=== PATIENT | female | born 1955 | race Caucasian/White ===

== ENCOUNTER → 2017-05-11 | Outpatient (CLI) | payer OTHER ==
--- NOTE | 2017-05-12 03:18 | RAD ---
EXAM DESCRIPTION: KUB CLINICAL HISTORY: 61 years Female, CALCULUS OF KIDNEY COMPARISON: 12/03/2015 FINDINGS: Single view of the abdomen. Large amount stool. No dilated loops of large or small bowel identified. Degenerative change of the spine. No definite free intraperitoneal air. No definite renal calculi identified. IMPRESSION: 1. Large stool burden. Nonobstructive bowel gas pattern. 2. No definite renal calculus identified. Electronically signed by: Timothy Valente 05/12/2017 3:17 AM CDT
== END | disposition home or self-care (01) ==
LOC: RAD 13:49
PROVIDERS: ATTEND Urology
DX: N20.0 Calculus of kidney (principal)

== ENCOUNTER → 2018-02-23 | Outpatient (CLI) | payer OTHER | LOC: LAB.O 09:09 | PROVIDERS: ATTEND Orthopaedic Surgery | DX: M17.0 Bilateral primary osteoarthritis of knee (principal) ==

== ENCOUNTER → 2018-05-04 | Outpatient (CLI) | payer OTHER ==
--- NOTE | 2018-05-05 07:21 | RAD ---
EXAM: Knee,Right 2 or More Views CLINICAL HISTORY: RIGHT KNEE PAIN COMPARISON STUDY: January 30, 2015 TECHNICAL: Standing AP, lateral and sunrise images FINDINGS: There is significant joint space loss of the medial compartment. There is remodeling of the femoral and tibial sides of the joint. Subchondral sclerosis and periarticular osteophytes are present. There is a lateral subluxation of the tibia that measures 8 mm. The lateral compartment shows no significant degenerative process. There are minimal osteophytes at the patellofemoral joint. There is no fracture, dislocation or joint effusion. IMPRESSION: Severe degenerative joint changes of the medial compartment and 8 mm lateral subluxation of the tibia., Mild varus angulation. Electronically signed by: Eleazar Powers MD 05/05/2018 7:20 AM CDT
--- NOTE | 2018-05-05 07:21 | RAD ---
EXAM: Pelvis and hip CLINICAL HISTORY: Pain COMPARISON STUDY: None TECHNICAL: AP pelvis FINDINGS: The pelvic ring is intact and negative. Both hips are in anatomic alignment. There is no identifiable fracture. There is no osseous abnormality. There are no significant degenerative changes IMPRESSION: Negative pelvis. Electronically signed by: Eleazar Powers MD 05/05/2018 7:20 AM CDT
--- NOTE | 2018-05-05 07:23 | RAD ---
EXAM: Knee,Left 2 or More Views CLINICAL HISTORY: LEFT KNEE PAIN COMPARISON STUDY: February 16, 2016 TECHNICAL: Standing AP, lateral and sunrise images FINDINGS: There is significant joint space loss of the medial compartment. There is remodeling of the femoral and tibial sides of the joint. Subchondral sclerosis and periarticular osteophytes are present. There is a lateral subluxation of the tibia that measures 7 mm. The lateral compartment shows no significant degenerative process. There are minimal osteophytes at the patellofemoral joint. There is no fracture, dislocation or joint effusion. IMPRESSION: Severe degenerative joint changes of the medial compartment and 8 mm lateral subluxation of the tibia., Mild varus angulation. Electronically signed by: Eleazar Powers MD 05/05/2018 7:22 AM CDT
== END ==
LOC: RAD 10:04
PROVIDERS: ATTEND Orthopaedic Surgery
DX: S83.142A Lateral subluxation of proximal end of tibia, left knee, initial encounter (principal); S83.141A Lateral subluxation of proximal end of tibia, right knee, initial encounter; M25.551 Pain in right hip; M25.552 Pain in left hip

== ENCOUNTER → 2018-05-25 | Outpatient (CLI) | payer OTHER | LOC: RESP 09:33 | PROVIDERS: ATTEND Orthopaedic Surgery | DX: Z01.818 Encounter for other preprocedural examination (principal) ==

== ENCOUNTER 2018-06-20 05:38 | Inpatient (IN) | payer OTHER ==
--- NOTE | 2018-06-19 08:32 | HP ---
CHIEF COMPLAINT: Right knee pain. HISTORY OF PRESENT ILLNESS: Mariam is a 62-year-old female with a history of severe knee pain. The pain has been getting progressively worse and has been refractory to conservative measures. Because of her ongoing pain and the refractory nature of it, she has requested operative intervention. After discussing the risks, benefits and alternatives to total knee arthroplasty, the patient has given informed consent. PAST SURGICAL HISTORY: 1. Bilateral carpal tunnel release. 2. Bilateral rotator cuff repair. 3. . MEDICATIONS: 1. Tylenol with codeine. 2. Amoxicillin. 3. Azithromycin. 4. Benzonatate. 5. Fluorouracil. 6. Hydrochlorothiazide. 7. Meloxicam. 8. Monovisc. 9. Potassium. 10. ProAir. 11. Triamcinolone. ALLERGIES: NO KNOWN DRUG ALLERGIES. CODE STATUS: Full code. IMMUNIZATIONS: Up to date. FAMILY HISTORY: None pertinent to today's complaint. SOCIAL HISTORY: The patient does not drink, smoke or use any illicit drugs. REVIEW OF SYSTEMS: Negative except as indicated in the History of Present Illness. PHYSICAL EXAMINATION: VITAL SIGNS: Blood pressure 148/84. Pulse 86. Height 5'3". Weight 198 pounds. MENTAL STATUS: The patient is awake, alert, and is able to give a good history and participate in the physical. The patient is oriented to person, place and time. SKIN: Normal tone and turgor. HEENT: Normocephalic, atraumatic. Pupils equal, round and reactive. Mucosal membranes are moist. NECK: Normal range of motion. No thyromegaly, no lymphadenopathy. CHEST: Normal respiratory excursion. CARDIAC: Regular rate and rhythm. No murmurs, rubs or gallops. MUSCULOSKELETAL: The bilateral upper extremities show full active range of motion without pain. She has intact sensation in both extremities and they are warm and well perfused. 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 The left lower extremity shows no significant pain with range of motion of the hip. Range of motion of the knee causes pain as does palpation. She has no varus/ valgus or anterior/posterior laxity, however, she does have slight varus deformity. The right lower extremity shows no significant pain with range of motion of the hip. She has pain with crepitus with range of motion of the knee and varus deformity. She has no significant varus/valgus or anterior/posterior laxity. The extremity is warm and well perfused. Sensation is intact. Strength is 5/5. IMAGING: X-rays show varus deformity to the knee and no acute bony abnormality. ASSESSMENT: 1. Osteoarthritis. PLAN: The plan at this point is for total knee arthroplasty. We have discussed the risks, benefits, and alternatives to that and the patient has given informed consent. [id number] [facility]
[2018-06-20] MEDS ORDERED: LACTATED RINGERS 1,000 ML ONE ×3 (05:59→09:51)
[2018-06-20] MEDS ORDERED: TRANEXAMIC ACID 1,000 MG/10 ML VIAL ONE ×2 (05:59→06:00)
[2018-06-20] MEDS ORDERED: SODIUM CHL 0.9% 100ML MINI-BAG 100 ML IVPB ONE (05:59)
[2018-06-20] MEDS ORDERED: VANCOMYCIN HCL INJ 1,000 MG VIAL IVPB ONE ×2 (05:59→20:32)
[2018-06-20] MEDS ORDERED: SODIUM CHLORIDE 0.9% 250ML 250 ML ONE ×2 (06:00→20:31)
[2018-06-20] MEDS ORDERED: ceFAZolin SODIUM 1 GM VIAL ONE ×2 (06:00→06:19)
[2018-06-20] MEDS ORDERED: SODIUM CHLORIDE 0.9% 100ML 100 ML IVPB ONE (06:00)
[2018-06-20] MEDS ORDERED: MORPHINE SULFATE *EPIDURAL* 0.5 MG/ML VIAL ONE (06:37)
[2018-06-20] MEDS ORDERED: MIDAZOLAM INJ 2 MG/2 ML VIAL ONE (06:37)
[2018-06-20] MEDS ORDERED: fentaNYL CITRATE INJ 50 MCG/ML AMP ONE (06:38)
[2018-06-20] MEDS ORDERED: BUPIVACAINE 0.5% 30 ML VIAL INJ ONE (06:38)
[2018-06-20] MEDS ORDERED: BUPIVACAINE LIPOSOME 13.3 MG/ML VIAL INJ ONE (06:39)
[2018-06-20] MEDS ORDERED: SUGAMMADEX SODIUM 200 MG/2 ML VIAL IV ONE (06:40)
[2018-06-20] MEDS ORDERED: LIDOCAINE 1% 10 ML VIAL INJ ONE ×2 (07:00→10:00)
[2018-06-20] MEDS: VANCOMYCIN HCL INJ 1,000 MG VIAL IVPB ONE ×2 (07:53→08:54)
[2018-06-20] MEDS: ceFAZolin SODIUM 1 GM VIAL ONE ×2 (07:53→08:54)
[2018-06-20] MEDS: BUPIVACAINE LIPOSOME 13.3 MG/ML VIAL INJ ONE ×2 (07:54→09:00)
[2018-06-20] MEDS: BUPIVACAINE 0.5% 30 ML VIAL INJ ONE ×2 (07:54→09:00)
[2018-06-20] MEDS ORDERED: TRANEXAMIC ACID INJ 1,000 MG in SODIUM CHLORIDE 0.9% 100ML 100 ML IVPB ONE (09:14)
[2018-06-20] MEDS ORDERED: ACETAMINOPHEN 500 MG TAB PO PRN (09:14)
[2018-06-20] MEDS ORDERED: MORPHINE SULFATE INJ 10 MG/ML VIAL IM PRN (09:14)
[2018-06-20] MEDS ORDERED: PROMETHAZINE HCL INJ 25 MG in SODIUM CHLORIDE 0.9% 50ML 50 ML IVPB PRN (09:14)
[2018-06-20] MEDS ORDERED: traMADol HCL 50 MG TAB PO PRN (09:14)
[2018-06-20] MEDS ORDERED: ACETAMINOPHEN 325 MG TAB PO PRN (09:14)
[2018-06-20] MEDS ORDERED: HYDROcodone 5MG/APAP 325MG 1 EA TAB PO PRN (09:14)
[2018-06-20] MEDS ORDERED: NALOXONE HCL INJ 0.4 MG/ML VIAL IV PRN (09:14)
[2018-06-20] MEDS ORDERED: DEX 5% W/NACL 0.45% 1000ML 1,000 ML IVS PRN (09:14)
[2018-06-20] MEDS ORDERED: PROMETHAZINE HCL INJ 12.5 MG in SODIUM CHLORIDE 0.9% 50ML 50 ML IVPB PRN (09:14)
[2018-06-20] MEDS ORDERED: MORPHINE SULFATE INJ 10 MG/ML VIAL IV PRN (09:14)
[2018-06-20] MEDS ORDERED: BISACODYL SUPPOSITORY 10 MG PR PRN (09:14)
[2018-06-20] MEDS ORDERED: ALUMINUM & MAGNESIUM HYDROXIDE 30 ML UD PO PRN (09:14)
[2018-06-20] MEDS ORDERED: MAGNESIUM HYDROXIDE 30 ML UD PO PRN (09:14)
[2018-06-20] MEDS ORDERED: ZOLPIDEM TARTRATE 5 MG TAB PO PRN (09:14)
[2018-06-20] MEDS ORDERED: BENZOCAINE-MENTH LOZ (CEPACOL) 1 EA LOZ MT PRN (09:14)
[2018-06-20] MEDS ORDERED: SODIUM CHLORIDE 0.9% (FLUSH) 10 ML SYG IV PRN (09:14)
[2018-06-20] MEDS ORDERED: MORPHINE PCA 1 MG/ML 100 ML BAG IVPB SCH (09:30)
[2018-06-20] MEDS ORDERED: IV SET AND CAP CHANGE INJ INJ SCH (09:30)
[2018-06-20] MEDS ORDERED: HALOPERIDOL LACTATE INJ 5 MG/ML VIAL IM ONE (10:00)
[2018-06-20] MEDS ORDERED: ePHEDrine SULF 50 MG/ML IV ONE (10:00)
[2018-06-20] MEDS ORDERED: WATER FOR INJ 10 ML VIAL INJ ONE (10:00)
[2018-06-20] MEDS ORDERED: VECURONIUM BROMIDE 10 MG VIAL IV ONE (10:00)
[2018-06-20] MEDS ORDERED: PROPOFOL 200 MG/20 ML VIAL IV ONE (10:00)
[2018-06-20] MEDS ORDERED: LABETALOL INJ 5 MG/ML VIAL IV ONE (10:00)
[2018-06-20] MEDS ORDERED: DEXAMETHASONE INJ 10 MG/ML VIAL IV ONE (10:00)
[2018-06-20] MEDS ORDERED: ONDANSETRON INJ 4 MG/2 ML VIAL IV ONE (10:00)
--- NOTE | 2018-06-20 11:31 | RAD ---
EXAM DESCRIPTION: Knee,Right 2 or More Views CLINICAL HISTORY: 62 yearsFemale, TKA COMPARISON: 05/04/2018 IMPRESSION: There are operative changes of a right total knee arthroplasty. Components appear in excellent alignment, with no complicating features. There is postoperative gas in the soft tissues. Electronically signed by: Jamaal Lizama MD 06/20/2018 11:30 AM [facility]
[2018-06-20] MEDS ORDERED: diphenhydrAMINE HCL 50 MG/ML VIAL ONE (14:19)
[2018-06-20] MEDS: diphenhydrAMINE HCL 50 MG/ML VIAL IV PRN ×3 (14:36→23:57)
[2018-06-20] MEDS ORDERED: ceFAZolin SODIUM 2 GRAMS PREMI 50 ML IVPB ONE ×2 (15:54→20:31)
[2018-06-20] MEDS ORDERED: ceFAZolin SODIUM 1 GM in SODIUM CHL 0.9% 50ML MIN-BAG+ 50 ML IVPB SCH (16:00)
[2018-06-20] MEDS: ceFAZolin SODIUM 2 GRAMS PREMI 2 GM in PREMIX BAG 1 BAG IVPB SCH ×2 (16:13→23:56)
[2018-06-20] MEDS: CELECOXIB 100 MG CAP PO SCH (17:54)
[2018-06-20] MEDS: VANCOMYCIN HCL INJ 1,000 MG in SODIUM CHLORIDE 0.9% 250ML 250 ML IVPB SCH (17:54)
--- NOTE | 2018-06-20 19:48 | CONS ---
DATE OF CONSULTATION: 06/20/18 SUPERVISING PHYSICIAN: Mynor Mehta M.D. CHIEF COMPLAINT: Right knee pain. HISTORY OF PRESENT ILLNESS: This is a 62 year-old female patient who has a history of severe right knee pain. It has progressively worsened over the past few years. She has failed with conservative measures. Because of her ongoing pain she has requested Dr. Bin Smith, orthopedic surgeon, operative intervention. Today, she was admitted to the hospital for a right total knee arthroplasty. The patient had no issues intraoperatively and I am seeing the patient postoperatively on the Medical/Surgical floor in consultation. PAST MEDICAL HISTORY: 1. Kidney stones. 2. Skin cancer. PAST SURGICAL HISTORY: 1. Carpal tunnel repair. 2. section times 2. 3. Rotator cuff repair. 4. Removal of multiple skin cancers. CURRENT OUTPATIENT MEDICATIONS: 1. Mobic. 2. Hydrochlorothiazide. 3. Potassium citrate. ALLERGIES: NO KNOWN DRUG ALLERGIES. SOCIAL HISTORY: She is . She has 2 children. She denies any ETOH, tobacco or illicit drug use. REVIEW OF SYSTEMS: Negative except as per History of Present Illness. PHYSICAL EXAMINATION: VITAL SIGNS: She is afebrile with temperature of 98.1, pulse 87, blood pressure 105/66, respiratory rate 20, O2 sat 93% on room air. GENERAL: This is a 62 year-old female patient who is lying in her hospital bed. She is in no acute distress. HEENT: Normocephalic and atraumatic. Pupils are equal and reactive. Oropharynx is clear. NECK: Supple without mass. RESPIRATORY: Essentially clear to auscultation. CHEST: There is equal rise and fall of the chest with inspiration and expiration. HEART: Regular rate and rhythm. GASTROINTESTINAL: Abdomen is soft, nondistended, non-tender. Bowel sounds are positive. EXTREMITIES: She has her right leg in the CPM machine. She has an Iceman in place on her right knee. The dressing is dry and intact. Her bilateral pedal pulses are palpable at +2. NEUROLOGIC: She is awake, alert and oriented times three. LABORATORY: There are no labs or films to review at this time. IMPRESSION: 1. Osteoarthritis of the right knee status post right total knee arthroplasty performed by Dr. Bin Smith, orthopedic surgeon. Postoperative day #0. 2. History of kidney stones. 3. History of skin cancers. PLAN: We will continue present supportive care. Orthopedic issues will be per Dr. Bin Smith, orthopedic surgeon. She will begin her physical therapy for strengthening and conditioning tomorrow. I have restarted her home medications with the exception of her Mobic. She has also gotten Benadryl for some mild itching. We will continue to monitor closely and follow as needed. Dr. Mehta is the collaborating physician available for consultation. #[id number] [facility]
[2018-06-20] MEDS ORDERED: ENOXAPARIN SODIUM 30 MG/0.3 ML SYG SUBCU ONE (20:31)
[2018-06-20] MEDS: DOCUSATE CALCIUM 240 MG CAP PO SCH (20:49)
[2018-06-20] MEDS: ENOXAPARIN SODIUM 30 MG/0.3 ML SYG SUBCU SCH (23:14)
[2018-06-21] MEDS: TEMAZEPAM 15 MG CAP PO PRN ×2 (00:13→21:44)
[2018-06-21] MEDS: CYCLOBENZAPRINE HCL 10 MG TAB PO PRN ×2 (02:05→08:09)
[2018-06-21] MEDS: diphenhydrAMINE HCL 50 MG/ML VIAL IV PRN (04:08)
[2018-06-21] MEDS: VANCOMYCIN HCL INJ 1,000 MG in SODIUM CHLORIDE 0.9% 250ML 250 ML IVPB SCH (05:44)
[2018-06-21] MEDS: CELECOXIB 100 MG CAP PO SCH ×2 (08:09→17:37)
[2018-06-21] MEDS ORDERED: ceFAZolin SODIUM 2 GRAMS PREMI 50 ML IVPB ONE (08:49)
[2018-06-21] MEDS: ceFAZolin SODIUM 2 GRAMS PREMI 2 GM in PREMIX BAG 1 BAG IVPB SCH (09:00)
[2018-06-21] MEDS: POTASSIUM CHLORIDE 10 MEQ TAB PO SCH (09:19)
[2018-06-21] MEDS: hydroCHLOROthiazide 25 MG TAB PO SCH (09:19)
[2018-06-21] MEDS: MAGNESIUM OXIDE 400 MG TAB PO SCH (09:19)
--- NOTE | 2018-06-21 10:31 | OP ---
DATE OF PROCEDURE: 06/20/18 PREOPERATIVE DIAGNOSIS: 1. Arthritis of the knee. POSTOPERATIVE DIAGNOSIS: 1. Arthritis of the knee. PROCEDURE: 1. Total knee arthroplasty. SURGEON: Bin Smith MD. BUDGET REPORT CLERK: Angel Sen CST, SA-C. ANESTHESIA: General anesthesia. COMPLICATIONS: None. FINDINGS: Severe arthritis fo the knee. INDICATION: Ms. Colon has a history of severe arthritis which has been refractory to conservative measures. Because of the refractory nature of her arthritis and her ongoing dysfunction, she has requested operative intervention. After discussing the risks, benefits and alternatives to that, the patient has given informed consent for total knee arthroplasty. PROCEDURE: The patient was brought to the Operating Room and placed in supine position. General anesthesia was induced and the patient's leg was sterilely prepped and draped. Following prepping and draping, the distal femur was exposed and using an intramedullary guide, the distal femoral cut was made. The appropriate sized cutting block was measured, pinned into place, and the anterior, posterior, and chamfer cuts were made. The ACL was transected and the tibia was subluxed. Both the medial and lateral menisci were removed. An intramedullary guide was used to make the proximal tibial cut. The appropriate sized base plate was placed and a trial polyethylene was placed. The trial femur was placed, the knee was reduced, and the knee was taken through a range of motion. The knee was stable in anterior, posterior, varus and valgus stress. The patella tracked anatomically without evidence of subluxation or dislocation. After trialing, the trial components were removed and the bony surfaces were thoroughly irrigated with saline. Following irrigation, the surfaces were dried and the final components were cemented into place. The excess cement was removed and the remaining cement was allowed to cure. The knee was again taken through a range of motion to confirm stability. The wound was then irrigated with saline and closure was performed using PDS to approximate the arthrotomy followed by closure of the subcutaneous tissues with a combination of running and interrupted Monocryl sutures. Sterile dressing was placed. The patient was awoken from anesthesia and taken to Recovery. POSTOPERATIVE PLAN: The patient will be weight-bearing on postoperative day 1. COMPONENTS: [employer] Triathlon knee, size 4 femur, size 4 tibia, 11 mm insert. #[id number] [facility]
--- NOTE | 2018-06-21 10:43 | PN ---
DATE: 06/20/18 SUBJECTIVE: Ms. Colon is doing well and has minimal discomfort. OBJECTIVE: Afebrile. Vital signs stable. Dressing is clean, dry and intact. ASSESSMENT: Status post total knee arthroplasty. PLAN: She will begin weightbearing as tolerated and CPM on postoperative day 1. #[id number] [facility]
--- NOTE | 2018-06-21 10:45 | PN ---
DATE: 06/21/18 SUBJECTIVE: Ms. Colon is doing well and has her knee bent at 90 degrees sitting at the side of the bed. OBJECTIVE: Afebrile. Vital signs stable. Dressing is clean, dry and intact. ASSESSMENT: Status post total knee arthroplasty. PLAN: The plan at this point is for physical therapy today. #[id number] [facility]
[2018-06-21] MEDS: ENOXAPARIN SODIUM 30 MG/0.3 ML SYG SUBCU SCH ×2 (11:03→23:14)
[2018-06-21] MEDS: HYDROcodone 7.5MG/APAP 325MG 1 EA TAB PO PRN (12:41)
[2018-06-21] MEDS ORDERED: SODIUM CHLORIDE 0.45% 1000ML 1,000 ML IVS PRN (16:30)
[2018-06-21] MEDS ORDERED: DEX 5% W/NACL 0.45% 1000ML 1,000 ML IVS PRN (19:13)
[2018-06-21] MEDS: DOCUSATE CALCIUM 240 MG CAP PO SCH (21:44)
[2018-06-21] MEDS: ONDANSETRON INJ 4 MG/2 ML VIAL IV PRN (23:30)
--- NOTE | 2018-06-21 23:45 | PN ---
DATE: 06/21/18 SUPERVISING PHYSICIAN: Mynor Mehta M.D. SUBJECTIVE: The patient is sitting up in her chair. She has walked several times in her room today with Physical Therapy. Feels like her pain is fairly well controlled. She did have a difficult time sleeping last night but denies any nausea, vomiting, diarrhea, constipation or chest pain. OBJECTIVE: VITAL SIGNS: She is afebrile, heart rate 98, blood pressure 126/70, respiratory rate 18, O2 sat 95%. RESPIRATORY: Essentially clear to auscultation bilaterally. CARDIAC: Regular rate and rhythm. GASTROINTESTINAL: Abdomen is soft, nondistended, non-tender. Bowel sounds are positive. EXTREMITIES: She has a dressing to her right knee that is dry and intact. Bilateral pedal pulses are +2. NEUROLOGIC: She is awake, alert and oriented times three. LABORATORY: Hemoglobin is 9.9, hematocrit 29.8. All other labs and films have been reviewed via the EMR. ASSESSMENT: 1. Osteoarthritis of the right knee status post total knee arthroplasty of her right knee performed by Dr. Bin Smith, orthopedic surgeon. Postoperative day #1. 2. History of kidney stones. 3. History of skin cancers. PLAN: We will continue present supportive care. Orthopedic issues will be per Dr. Bin Smith, orthopedic surgeon. She will continue with physical therapy for strengthening and conditioning. Plan for discharge on Tuesday. She plans to do outpatient physical therapy at [facility]'s Physical Therapy department. I have encouraged good pulmonary hygiene. Her H&H was slightly low today so I have ordered an H&H for in the morning. Otherwise will continue to monitor closely and follow as needed. Dr. Mehta is the collaborating physician available for consultation. #[id number] [facility]
[2018-06-22] MEDS: HYDROcodone 7.5MG/APAP 325MG 1 EA TAB PO PRN (06:22)
[2018-06-22] MEDS: ONDANSETRON INJ 4 MG/2 ML VIAL IV PRN (08:06)
[2018-06-22] MEDS: MAGNESIUM OXIDE 400 MG TAB PO SCH (08:45)
[2018-06-22] MEDS: CELECOXIB 100 MG CAP PO SCH (08:45)
[2018-06-22] MEDS: POTASSIUM CHLORIDE 10 MEQ TAB PO SCH (08:46)
[2018-06-22] MEDS: hydroCHLOROthiazide 25 MG TAB PO SCH (08:46)
[2018-06-22] MEDS ORDERED: SODIUM CHLORIDE 0.9% (FLUSH) 10 ML SYG IV SCH (09:00)
--- NOTE | 2018-06-22 09:02 | PN ---
DATE: 06/22/18 SUBJECTIVE: Ms. Colon is doing well. She has good pain control this morning. OBJECTIVE: Afebrile. Vital signs stable. Wound is clean. There are no signs or symptoms of infection. ASSESSMENT: Status post total knee arthroplasty. PLAN: The plan at this point is for her to continue with weightbearing as tolerated. #[id number] [facility]
[2018-06-22] MEDS ORDERED: MAGNESIUM HYDROXIDE 30 ML UD PO ONE (10:02)
[2018-06-22 10:05] VITALS: BP 128/75; TEMP 98.4
[2018-06-22] MEDS ORDERED: PROMETHAZINE HCL INJ 25 MG/ML VIAL ONE (11:02)
[2018-06-22] MEDS ORDERED: SODIUM CHLORIDE 0.9% 50ML 50 ML ONE (11:02)
[2018-06-22] MEDS: ENOXAPARIN SODIUM 30 MG/0.3 ML SYG SUBCU SCH (11:08)
[2018-06-22 15:11] VITALS: O2SAT 85
--- NOTE | 2018-06-22 21:28 | DS ---
SUPERVISING PHYSICIAN: Mynor Mehta M.D. DISCHARGE DIAGNOSIS: 1. Osteoarthritis of the right knee status post total knee arthroplasty of her right knee performed by Dr. Bin Smith, orthopedic surgeon. Postoperative day #2. 2. History of kidney stones. 3. History of skin cancers. HISTORY OF PRESENT ILLNESS: This is a 62 year-old female patient who was admitted on 06/20/18 for right total knee arthroplasty. She has had a long history of osteoarthritis of the right knee. She has tired conservative measures and after failing those conservative measures she requested operative intervention by Dr. Bin Smith, orthopedic surgeon. On the day of admission she was admitted for right total knee arthroplasty. She had no issues intraoperatively. I saw the patient in consultation postoperatively. HOSPITAL COURSE: She continued with her physical therapy for strengthening and conditioning. She had minimal issues with her postoperative pain. She has met all of her physical therapy goals and she will be discharged home today in stable condition. DISCHARGE PLAN: The patient will be discharged home in stable condition. A walker has been ordered for her. She will continue with outpatient physical therapy at [facility]'s physical therapy department. She has a followup appointment with Dr. Smith on 07/07/18 at 10:00 AM. Her activity is per physical therapy. She is to resume her home medications except she has been cautioned to hold off on NSAIDs until she has completed her Xarelto treatment. DISCHARGE MEDICATIONS: 1. Meloxicam. 2. Hydrochlorothiazide. 3. Acetaminophen. 4. Potassium citrate. 5. Evening [place] oil. 6. Cyclobenzaprine. 7. Hydrocodone. 8. Xarelto. #[id number] [facility]
[2018-06-23] MEDS ORDERED: BISACODYL SUPPOSITORY 10 MG PR ONE (21:00)
[2018-06-23] MEDS ORDERED: MAGNESIUM HYDROXIDE 30 ML UD PO ONE (21:00)
== END 2018-06-22 16:40 | disposition home or self-care (01) | DRG 470 ==
LOC: AMB 05:38 → MS 10:45
PROVIDERS: ADMIT Orthopaedic Surgery; ATTEND Orthopaedic Surgery
PROC: 0SRC0J9 Replacement of Right Knee Joint with Synthetic Substitute, Cemented, Open Approach (ICD-10-PCS; principal; 2018-06-20 07:06)
DX: M17.11 Unilateral primary osteoarthritis, right knee (principal); Z87.442 Personal history of urinary calculi; Z85.828 Personal history of other malignant neoplasm of skin

== ENCOUNTER 2018-06-28 09:22 | Emergency (ER) | payer OTHER ==
[2018-06-28 09:35] VITALS: TEMP 97.7
[2018-06-28] MEDS ORDERED: KETOROLAC TROMETHAMINE INJ 30 MG/ML VIAL IV ONE (09:44)
[2018-06-28] MEDS ORDERED: METOCLOPRAMIDE HCL INJ 10 MG/2 ML VIAL IV ONE (09:44)
[2018-06-28] MEDS ORDERED: HALOPERIDOL LACTATE INJ 5 MG/ML VIAL IM ONE (09:44)
[2018-06-28] MEDS ORDERED: diphenhydrAMINE HCL 50 MG/ML VIAL IV ONE (09:44)
--- NOTE | 2018-06-28 09:54 | ED.PDOC ---
History of Present Illness - General Chief Complaint: Headache Stated Complaint: N/V,MCDANIEL,Neck pain Time Seen by Provider: 06/28/18 09:43 Source: patient, RN notes reviewed, Vital Signs reviewed - History of Present Illness Initial Comments: ACUTE ONSET HEADACHE, 03/03. ASSOCIATED WITH NECK PAIN AND NAUSEA AND VOMITING. DENIES ANY FEVER. SHE UNDERWENT A CELE KNEE REPLACEMENT IN THE RECENT PAST. THE PAIN IS THROBBING AND MOSTLY ON THE FOREHEAD AND PERIORBITAL REGIONS. SHE HAS LIGHT SENSITIVITY AND PHONOPHOBIA. Timing/Duration: other - TWO DAYS Worsening Factors: movement Associated Symptoms: malaise, nausea/vomiting Allergies/Adverse Reactions: Allergies NO KNOWN ALLERGY Allergy (Verified 06/19/18 08:46) Home Medications: Ambulatory Orders Meloxicam [Mobic] 15 mg PO BEDTIME 11/08/13 Acetaminophen [Tylenol] 500 mg PO BID 02/03/15 Hydrochlorothiazide 25 mg PO DAILY 02/03/15 Evening [place] Oil [Eql Evening Tecumseh Oil 500 mg] 1 cap PO BEDTIME Potassium Citrate (Alkalinizer [Potassium Citrate ER] 10 meq PO DAILY 06/19/18 Cyclobenzaprine HCl [Flexeril] 10 mg PO Q8H PRN #20 tab 06/22/18 HYDROcodone 7.5MG/APAP 325MG [Brewer 7.5/325] 1 ea PO Q4H PRN tab 06/22/18 Rivaroxaban [Xarelto] 10 mg PO DAILY #9 tab 06/22/18 Ondansetron [Zofran Odt] 4 mg PO Q8HRS #6 tab 06/28/18 Review of Systems - Review of Systems Constitutional: States: other - PHOTOPHOBIA, PHONOPHOBIA EENTM: States: no symptoms reported Respiratory: States: no symptoms reported Cardiology: States: no symptoms reported Gastrointestinal/Abdominal: States: nausea, vomiting Genitourinary: States: no symptoms reported Musculoskeletal: States: no symptoms reported Skin: States: no symptoms reported Neurological: States: no symptoms reported Endocrine: States: no symptoms reported Hematologic/Lymphatic: States: no symptoms reported Past Medical History (General) - Patient Medical History Hx Seizures: No Hx Stroke: No Hx Dementia: No Hx Asthma: No Hx of COPD: No Hx Cardiac Disorders: No Hx Congestive Heart Failure: No Hx Pacemaker: No Hx Hypertension: No Hx Thyroid Disease: No Hx Diabetes: No Hx Gastroesophageal Reflux: No Hx Renal Disease: No Hx Cancer: No Hx of HIV: No Hx Hepatitis C: No Hx MRSA: No - Vaccination History Hx Tetanus, Diphtheria Vaccination: No Hx Influenza Vaccination: Yes Hx Pneumococcal Vaccination: No - Social History Hx Tobacco Use: No Hx Chewing Tobacco Use: No Hx Alcohol Use: No Hx Substance Use: No Hx Substance Use Treatment: No Hx Depression: No Hx Physical Abuse: No Hx Emotional Abuse: No Hx Suspected Abuse: No - Female History Patient : No Family Medical History - Family History Mother Family History: Unknown Physical Exam - Physical Exam General Appearance: Alert, Ill Appearing, Well Developed, Well Groomed, Well Hydrated Eye Exam: bilateral normal Ears, Nose, Throat: hearing grossly normal, normal ENT inspection Neck: full range of motion, supple Respiratory: chest non-tender, lungs clear, normal breath sounds, no respiratory distress, no accessory muscle use Cardiovascular/Chest: normal peripheral pulses, regular rate, rhythm, no edema, no gallop Peripheral Pulses: radial,right: 2+, radial,left: 2+ Gastrointestinal/Abdominal: normal bowel sounds, non tender, soft, no organomegaly Back Exam: normal inspection, no CVA tenderness Extremity: normal range of motion, non-tender, normal inspection, no pedal edema , no calf tenderness Skin Exam: normal color Lymphatic: no adenopathy Progress - Progress Progress: 06/28/18 11:[address] HEAD IS NORMAL. THE PATIENT IS ASLEEP AND VOMITED ONCE BEFORE MEDS WERE GIVEN. WILL CONTINUE TO OBSERVE. 06/28/18 11:39 REPORTS HER MCDANIEL IS 0/10-READY TO GO HOME. - Results/Orders Results/Orders: Laboratory Results WBC 9.1 K/mm3 (4.8-10.8) 06/28/18 09:50 RBC 3.33 M/mm3 (4.20-5.40) L 06/28/18 09:50 Hgb 9.3 gm/dL (12.0-16.0) L 06/28/18 09:50 Hct 29.1 % (36.0-47.0) L 06/28/18 09:50 MCV 87.4 fl (81.0-99.0) 06/28/18 09:50 MCH 27.9 pg (27.0-31.0) 06/28/18 09:50 MCHC 32.0 g/dL (33.0-37.0) L 06/28/18 09:50 RDW 14.1 % (11.5-14.5) 06/28/18 09:50 Plt Count 250 K/mm3 (130-400) 06/28/18 09:50 MPV 9.5 fl (7.40-10.4) 06/28/18 09:50 Absolute Neuts (auto) 7.40 K/uL (1.8-6.8) H 06/28/18 09:50 Absolute Lymphs (auto) 1.00 K/uL (1.0-3.4) 06/28/18 09:50 Absolute Monos (auto) 0.60 K/uL (0.2-0.8) 06/28/18 09:50 Absolute Eos (auto) 0.10 K/uL (0.0-0.4) 06/28/18 09:50 Absolute Basos (auto) 0.00 K/uL (0.0-0.1) 06/28/18 09:50 Neutrophils % 81.5 % (42.0-78.0) H 06/28/18 09:50 Lymphocytes % 10.7 % (20.0-50.0) L 06/28/18 09:50 Monocytes % 6.6 % (2.0-9.0) 06/28/18 09:50 Eosinophils % 0.9 % (1.0-5.0) L 06/28/18 09:50 Basophils % 0.3 % (0.0-2.0) 06/28/18 09:50 Sodium 139 mmol/L (135-145) 06/28/18 09:50 Potassium 4.2 mmol/L (3.6-5.0) 06/28/18 09:50 Chloride 104 mmol/L (101-111) 06/28/18 09:50 Carbon Dioxide 27 mmol/L (21-31) 06/28/18 09:50 Anion Gap 12.2 (12-18) 06/28/18 09:50 BUN 15 mg/dL (7-18) 06/28/18 09:50 Creatinine 0.50 mg/dL (0.6-1.3) L 06/28/18 09:50 BUN/Creatinine Ratio 30.0 (10-20) H 06/28/18 09:50 Random Glucose 133 mg/dL (70-105) H 06/28/18 09:50 Serum Osmolality 280.3 mOsm/L (275-295) 06/28/18 09:50 Calcium 8.8 mg/dL (8.4-10.2) 06/28/18 09:50 Total Bilirubin 0.4 mg/dL (0.2-1.0) 06/28/18 09:50 AST 22 IU/L (10-42) 06/28/18 09:50 ALT 11 IU/L (10-60) 06/28/18 09:50 Alkaline Phosphatase 81 IU/L (42-121) 06/28/18 09:50 Serum Total Protein 7.5 gm/dL (6.4-8.2) 06/28/18 09:50 Albumin 3.6 g/dl (3.2-5.5) 06/28/18 09:50 Globulin 3.9 gm/dL (2.3-3.5) H 06/28/18 09:50 Albumin/Globulin Ratio 0.9 (1.1-1.9) L 06/28/18 09:50 Departure - Departure Clinical Impression: Migraine headache without aura Qualifiers: Status migrainosus presence: without status migrainosus Time of Disposition: 11:40 Disposition: Discharge to Home or Self Care Condition: Good Departure Forms: ED Discharge - Pt. Copy, Patient Portal Self Enrollment Instructions: DI for Headache Diet: resume usual diet Activity: increase activity as tolerated Referrals: Baldo Pradhan MD [Primary Care Provider] - 1-2 Weeks Prescriptions: Ondansetron [Zofran Odt] 4 mg PO Q8HRS #6 tab Home Medications: Ambulatory Orders Meloxicam [Mobic] 15 mg PO BEDTIME 11/08/13 Acetaminophen [Tylenol] 500 mg PO BID 02/03/15 Hydrochlorothiazide 25 mg PO DAILY 02/03/15 Evening [place]um[place] Oil [Eql Evening [place] Oil 500 mg] 1 cap PO BEDTIME Potassium Citrate (Alkalinizer [Potassium Citrate ER] 10 meq PO DAILY 06/19/18 Cyclobenzaprine HCl [Flexeril] 10 mg PO Q8H PRN #20 tab 06/22/18 HYDROcodone 7.5MG/APAP 325MG [Brewer 7.5/325] 1 ea PO Q4H PRN tab 06/22/18 Rivaroxaban [Xarelto] 10 mg PO DAILY #9 tab 06/22/18 Ondansetron [Zofran Odt] 4 mg PO Q8HRS #6 tab 06/28/18
--- NOTE | 2018-06-28 10:47 | CT ---
EXAM DESCRIPTION: Head CLINICAL HISTORY: severe zaidi COMPARISON: None TECHNIQUE: Noncontrast transaxial CT images of the head are obtained from base to vertex. This exam was performed according to our departmental dose-optimization program, which includes automated exposure control, adjustment of the mA and/or kV according to patient size and/or use of iterative reconstruction technique. FINDINGS: The midline structures are not displaced. The sulci are age appropriate. The lateral, third, and fourth ventricles are normal in size, shape, and anatomic positioning. There is no evidence of mass, mass effect, hydrocephalus, or acute intracranial hemorrhage. No abnormal extra axial fluid collections are seen. Normal cedeño-white differentiation is seen. The visualized bone windows show no depressed skull fracture or significant abnormality. Mild mucosal thickening is seen in the ethmoid air cells left greater than right. Mild calcifications of the intracranial carotid arteries are seen. IMPRESSION: 1. No acute abnormality is seen on noncontrast CT of the head. Electronically signed by: Bob Quinones MD 06/28/2018 10:46 AM [facility]
[2018-06-28 11:39] VITALS: BP 146/85; O2SAT 99
== END 2018-06-28 12:00 | disposition home or self-care (01) ==
LOC: ER 09:22
DX: G43.009 Migraine without aura, not intractable, without status migrainosus (principal); M54.9 Dorsalgia, unspecified; Z79.899 Other long term (current) drug therapy
CPT/HCPCS: 70450; 80053; 85025; J1200; J1630; J1885; J2765

== ENCOUNTER → 2019-06-13 | Outpatient (CLI) | payer OTHER ==
--- NOTE | 2019-06-14 11:48 | RAD ---
EXAM DESCRIPTION: KUB CLINICAL HISTORY: 63 years Female, RENAL CALCULI COMPARISON: None. TECHNIQUE: 1 view of the abdomen was performed. FINDINGS: Multiple air distended bowel loops are identified with no evidence of bowel obstruction. Moderate amount of fecal material is identified. No abnormal calcifications are noted. IMPRESSION: Constipation. No radiographic evidence of renal calculi. Electronically signed by: Lily Lanier MD 06/14/2019 11:46 AM [facility]
== END | disposition home or self-care (01) ==
LOC: RAD 14:51
PROVIDERS: ATTEND Urology
DX: N20.0 Calculus of kidney (principal)

== ENCOUNTER → 2019-08-31 | Outpatient (CLI) | payer OTHER | LOC: LAB.O 09:24 | PROVIDERS: ATTEND Orthopaedic Surgery | DX: Z01.818 Encounter for other preprocedural examination (principal) ==

== ENCOUNTER → 2019-10-02 | Outpatient (CLI) | payer OTHER | DX: R60.9 Edema, unspecified (principal) ==

== ENCOUNTER → 2020-01-08 | Outpatient (CLI) | payer OTHER ==
--- NOTE | 2020-01-09 16:16 | US ---
EXAM DESCRIPTION: Soft Tissue,Extremity: ULTRASOUND. 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 TECHNIQUE: Transcutaneous scanning: [place]o-scale and Doppler modes. FINDINGS: Uniform isoechoic mass with echogenic capsule and circumscribed margins in the adipose subcutaneous layer abutting the deep fascial layer overlying the muscles on the right arm. Dimensions are 2.9 x 2.3 x 1.0 cm. Nonvascular. No fluid collection, no distinct cyst, no large calcifications. IMPRESSION: Fatty, 2.9 cm mass in the subcutaneous adipose layer of the right are most likely a lipoma. Electronically signed by: Angel Ortega MD 01/09/2020 4:15 PM CDT
== END ==
LOC: US 10:30
PROVIDERS: ATTEND Family Medicine
DX: D17.21 Benign lipomatous neoplasm of skin and subcutaneous tissue of right arm (principal)